=== PATIENT | male | born 1995 | race African-American/Black ===

== ENCOUNTER 2018-12-10 15:59 | Emergency (ER) | payer OTHER ==
[~2018-12-10] VITALS: Ht 177.8 cm; Wt 108.9 kg
[2018-12-10 16:15] VITALS: BP 134/64
[2018-12-10] MEDS ORDERED: RINGWORM14.2 GM TOP (16:42)
[2018-12-10] MEDS ORDERED: KEFLEX500 M1 PO (16:42)
== END 2018-12-10 16:55 | disposition home or self-care (01) ==
LOC: ER 15:59
DX: R21 Rash and other nonspecific skin eruption (principal); J45.909 Unspecified asthma, uncomplicated

== ENCOUNTER 2020-11-22 11:42 | Emergency (ER) | payer OTHER ==
[~2020-11-22] VITALS: Ht 177.8 cm; Wt 108.9 kg
[~2020-11-22 11:42] MED LIST: KEFLEX500 M1 PO; RINGWORM14.2 GM TOP
[2020-11-22 12:13] LABS: ABSOLUTE NEUTROPHILS 11.3 thou/uL (1.4-8.2); BASOPHILS 1.2 % (0.0-2.0); EOSINOPHILS 0.5 % (0.0-3.0); HEMATOCRIT 43.8 % (42.0-52.0); HEMOGLOBIN 14.2 gm/dL (14.0-18.0); LYMPHOCYTES 11.3 % (24.0-44.0); MCH 25.9 pg (26.0-34.0); MCHC 32.3 g/dL (28.0-37.0); MCV 80.2 fL (80.0-100.0); MONOCYTES 8.6 % (1.0-8.0); PLATELET COUNT 343 thou/uL (150-400); POLYS 78.4 % (36.0-66.0); RBC 5.46 mil/uL (4.50-6.00); RDW 13.9 % (10.5-14.5); WBC 14.4 thou/uL (4.0-11.0)
[2020-11-22 12:25] LABS: CREATININE 0.9 mg/dL (0.7-1.3); POTASSIUM 4.1 mmol/L (3.5-5.1)
[2020-11-22 12:31] LABS: ALBUMIN 3.5 g/dL (3.4-5.0); TOTAL BILIRUBIN 0.4 mg/dL (0.2-1.0); TOTAL PROTEIN 8.1 g/dL (6.4-8.2)
[2020-11-22] MEDS ORDERED: HYDROCODON-ACE1 EAC7 PO (15:27)
[2020-11-22 15:32] VITALS: BP 119/77
== END 2020-11-22 15:36 | disposition home or self-care (01) ==
LOC: ER 11:42
PROVIDERS: Nurse Practitioner
DX: J36 Peritonsillar abscess (principal); Z20.822 Contact with and (suspected) exposure to COVID-19; J45.909 Unspecified asthma, uncomplicated